=== PATIENT | female | born 2000 | race Two or more races ===

== ENCOUNTER 2019-09-29 18:26 | Emergency (ER) | payer OTHER ==
[~2019-09-29] VITALS: Ht 167.6 cm; Wt 63.0 kg
--- NOTE | 2019-09-29 18:37 | NUR ---
ASSESSED PRIOR TO TRIAGE TO DETERMINE ACUITY. PT WITHOUT SX AT THIS TIME. REPORTS OF SOME FACIAL NUMBNESS PRIOR TO ARRIVAL, RESOLVED NOW.
--- NOTE | 2019-09-29 19:18 | NUR ---
PT TO ED WITH C/O AN EPISODE OF TONGUE NUMBNESS AND SPEECH DIFFICULTIES. PT REPORTS THIS HAPPENED AROUND 1500 TODAY AND RESOLVED WITHIN A COUPLE OF MINUTES. DENIES PRIOR HX OF THESE SYMPTOMS. DENIES MEDICAL/SURGICAL HX. DENIES ALCOHOL OR DRUG USE. REPORTS SHE DOES INTERMITTENT FASTING AND USUALLY BREAKS HER FAST AROUND 1500 BUT WAITED A LITTLE BIT LONGER THESE PAST FEW DAYS. DENIES CURRENT SYMPTOMS. FAST NEGATIVE AND STRENGTHS STRONG IN ALL 4 EXTREMITIES.
[2019-09-29 20:00] LABS: BASOPHILS # (AUTO) 0.05 x10^3/uL (0-0.1); BASOPHILS % (AUTO) 1 % (0-1); EOSINOPHILS # (AUTO) 0.05 x10^3/uL (0-0.4); EOSINOPHILS % (AUTO) 1 % (1-7); LYMPHOCYTES # (AUTO) 1.56 x10^3/uL (1-3.4); LYMPHOCYTES % (AUTO) 18 % (22-44); MD NO; MEAN CORPUSCULAR HEMOGLOBIN 30.4 pg (27.0-34.8); MEAN CORPUSCULAR HGB CONC 33.7 g/dL (32.4-35.8); MEAN PLATELET VOLUME 9.1 fL (7.4-10.4); MONOCYTES # (AUTO) 0.68 x10^3/uL (0.2-0.8); MONOCYTES % (AUTO) 8 % (2-9); NEUTROPHILS # (AUTO) 6.46 x10^3/uL (1.8-6.8); NEUTROPHILS % (AUTO) 73 % (42-75); PLATELET COUNT 281 x10^3/uL (130-400); RED CELL DISTRIBUTION WIDTH 13.5 % (9.6-15.2)
[2019-09-29 20:09] LABS: ALANINE AMINOTRANSFERASE 19 U/L (12-78); ALBUMIN 4.1 g/dL (3.4-5.0); ANION GAP 10 mmol/L (5-15); CHLORIDE 110 mmol/L (98-107); CREATININE 0.73 mg/dL (0.55-1.02)
[2019-09-29 20:13] LABS: ALKALINE PHOSPHATASE 46 U/L (45-117); BILIRUBIN,TOTAL 1.2 mg/dL (0.2-1.0); TOTAL PROTEIN 7.3 g/dL (6.4-8.2)
--- NOTE | 2019-09-29 21:04 | NUR ---
PT RESTING AND DENIES CURRENT NEEDS. AWAITING LAB RESULTS.
[2019-09-29 21:05] VITALS: BP 108/63
== END 2019-09-29 21:37 | disposition home or self-care (01) ==
LOC: ED 20:44
DX: F45.8 Other somatoform disorders (principal); R47.81 Slurred speech
CPT/HCPCS: 36415; 80053; 84443; 84703; 85025; 99283